=== PATIENT | female | born 2000 | race Caucasian/White ===

== ENCOUNTER 2018-01-03 01:26 | Emergency (ER) | payer BC ==
[~2018-01-03] VITALS: Ht 167.6 cm; Wt 54.7 kg
[2018-01-03 01:31] VITALS: TEMP 36.5; Ht 167.6 cm; Wt 54.7 kg
[2018-01-03] MEDS ORDERED: ALBUT/IPRATROP 3MG/0.5MG NEB 3 ML VIAL INH STA (01:46)
[2018-01-03] MEDS ORDERED: SODIUM CHLORIDE 0.9% 1000ML 1,000 ML IV STA (01:46)
[2018-01-03] MEDS ORDERED: DiphenhydrAMINE HCL 50 MG/ML VIAL IV STA (01:46)
[2018-01-03 02:14] LABS: BASO % 0.4 %; BASO ABS # 0.03 K/uL (0-0.2); EOS % 1.6 %; EOS ABS # 0.12 K/uL (0-0.5); HEMATOCRIT 42.2 % (37-47); HEMOGLOBIN 15.3 g/dL (12.0-16.0); IG# 0.02 K/uL (0.00-0.02); LYMPH % 40.1 %; LYMPH ABS # 3.01 K/uL (1.2-3.4); MEAN CORPUSCULAR HEMOGLOBIN 31.5 pg (25-34); MEAN CORPUSCULAR HGB CONC 36.3 g/dl (32-36); MONO % 9.5 %; MONO ABS # 0.71 K/uL (0.11-0.59); NEUT % 48.1 %; NEUT ABS # 3.62 K/uL (1.4-6.5); PLATELET COUNT 218 K/uL (130-400); RED CELL DISTRIBUTION WIDTH CV 11.6 % (11.5-14.5); RED CELL DISTRIBUTION WIDTH SD 36.6 fL (36.4-46.3); WHITE BLOOD COUNT 7.51 K/uL (4.8-10.8)
[2018-01-03] MEDS ORDERED: BCPILLS PO (02:21)
[2018-01-03] MEDS ORDERED: MONT1TAB3 PO (02:21)
[2018-01-03] MEDS ORDERED: TZRCR5 TOP (02:21)
[2018-01-03] MEDS ORDERED: DAPS5GEL2 TOP (02:21)
[2018-01-03 02:33] LABS: BLOOD UREA NITROGEN 11 mg/dl (7-18); CALCIUM 9.3 mg/dl (8.5-10.1); CARBON DIOXIDE 25 mmol/L (21-32); CREATININE 0.91 mg/dl (0.60-1.20); GLUCOSE 100 mg/dl (70-99); POTASSIUM 3.3 mmol/L (3.5-5.1); SODIUM 140 mmol/L (136-145)
[2018-01-03 03:07] VITALS: BP 121/65; PULSE 78; O2SAT 98
--- NOTE | 2018-01-03 03:13 | EMERGENCY ROOM VISIT NOTE ---
History Report prepared by Gary: Mariel Richards Under the Supervision of: Dr. Eduardo Colorado M.D. First contact with patient: 01:34 Chief Complaint: RESPIRATORY PROBLEMS Stated Complaint: DIFFICULTY BREATHING History of Present Illness The patient is a 17 year old female who presents to the Emergency Room with complaints of persistent difficulty breathing starting earlier today. She has a history of exercise induced asthma, but her symptoms today do not feel like her asthma. She feels like she should be getting more air. She is hearing noise on the left side of her chest with breathing in. Her SOB worsened today when she was lying down to go to bed. Her SOB worsened with crying today. Her grandfather today. She reports chest tightness and intermittent sharp pain in her left shoulder blade. She has had a cough. She has felt SOB with walking and going up stairs for the past couple of days. She denies any leg swelling or calf pain. She denies any history of anemia or blood clots. She denies any family history of blood clots. She is on control. Source of History: patient Onset: earlier today Position: other (global) Quality: other (difficulty breathing) Timing: other (persistent) Modifying Factors (Worsening): other (crying, lying down) Associated Symptoms: + cough, + chest pain, + back pain Note: Pt denies leg swelling or calf pain. Review of Systems See HPI for pertinent positives & negatives. A total of 10 systems reviewed and were otherwise negative. Past Medical & Surgical Medical Problems: (1) Exercise-induced asthma Family History No family history of blood clots. Social History Smoking Status: Never Smoker Occupation Status: [employer] student Current/Historical Medications Scheduled Control Pills ( Control Pills), 1 TAB PO DAILY Dapsone (Topical) (Aczone), 1 APPLN TOP BID Montelukast Sodium (Singulair), 10 MG PO DAILY Tazarotene (Tazorac), 1 APPLN TOP HS Allergies Coded Allergies: No Known Allergies (Unverified , 01/03/18) Physical Exam Vital Signs Date Time Temp Pulse Resp B/P (MAP) Pulse Ox O2 Delivery O2 Flow Rate FiO2 01/03/18 03:07 78 16 121/65 98 Room Air 01/03/18 01:40 97 Room Air 01/03/18 01:31 36.5 84 18 125/85 98 Room Air Physical Exam GENERAL: Patient is sad appearing, crying, and in no acute distress. HEENT: No acute trauma, normocephalic atraumatic, dehydrated appearing with some dry mucous membranes, no nasal congestion, no scleral icterus. NECK: No stridor, no adenopathy, no meningismus, trachea is midline. LUNGS: Mild prolonged expiratory time otherwise no wheeze, no rhonchi. HEART: Regular rate and rhythm. No murmurs, rubs, gallops appreciated. ABDOMEN: Soft, nontender, bowel sounds positive, no masses appreciated, no peritonitis. BACK: No midline tenderness, no CVA tenderness EXTREMITIES: Normal motion all extremities, no cyanosis, no edema. NEUROLOGIC: Alert and oriented, no acute motor or sensory deficits, no focal weakness, cranial nerves grossly intact. SKIN: No rash, no jaundice, no diaphoresis. Medical Decision & Procedures ER Provider Diagnostic Interpretation: X ray results are stated below per my interpretation: Chest: 1 view: No infiltrate, no effusion, normal cardiac border. Laboratory Results 01/03/18 02:00 Red Blood Count 4.85, Mean Corpuscular Volume 87.0, Mean Corpuscular Hemoglobin 31.5, Mean Corpuscular Hemoglobin Concent 36.3, Mean Platelet Volume 9.0, Neutrophils (%) (Auto) 48.1, Lymphocytes (%) (Auto) 40.1, Monocytes (%) (Auto) 9.5, Eosinophils (%) (Auto) 1.6, Basophils (%) (Auto) 0.4, Neutrophils # (Auto) 3.62, Lymphocytes # (Auto) 3.01, Monocytes # (Auto) 0.71, Eosinophils # (Auto) 0.12, Basophils # (Auto) 0.03 01/03/18 02:00 Test 01/03/18 02:00 01/03/18 02:43 White Blood Count 7.51 K/uL (4.8-10.8) Red Blood Count 4.85 M/uL (4.2-5.4) Hemoglobin 15.3 g/dL (12.0-16.0) Hematocrit 42.2 % (37-47) Mean Corpuscular Volume 87.0 fL (80-100) Mean Corpuscular Hemoglobin 31.5 pg (25-34) Mean Corpuscular Hemoglobin Concent 36.3 g/dl (32-36) Platelet Count 218 K/uL (130-400) Mean Platelet Volume 9.0 fL (7.4-10.4) Neutrophils (%) (Auto) 48.1 % Lymphocytes (%) (Auto) 40.1 % Monocytes (%) (Auto) 9.5 % Eosinophils (%) (Auto) 1.6 % Basophils (%) (Auto) 0.4 % Neutrophils # (Auto) 3.62 K/uL (1.4-6.5) Lymphocytes # (Auto) 3.01 K/uL (1.2-3.4) Monocytes # (Auto) 0.71 K/uL (0.11-0.59) Eosinophils # (Auto) 0.12 K/uL (0-0.5) Basophils # (Auto) 0.03 K/uL (0-0.2) RDW Standard Deviation 36.6 fL (36.4-46.3) RDW Coefficient of Variation 11.6 % (11.5-14.5) Immature Granulocyte % (Auto) 0.3 % Immature Granulocyte # (Auto) 0.02 K/uL (0.00-0.02) Anion Gap 8.0 mmol/L (3-11) Est Creatinine Clear Calc Drug Dose 85.9 ml/min Estimated GFR () 106.0 Estimated GFR (Non- 91.5 BUN/Creatinine Ratio 12.6 (10-20) Calcium Level 9.3 mg/dl (8.5-10.1) Total Creatine Kinase 89 U/L (26-192) Troponin I < 0.015 ng/ml (0-0.045) D-Dimer 200 ug/L FEU (0-500) Laboratory results as reviewed by me. Medications Administered Medications (Trade) Dose Ordered Sig/Peg Route Start Time Stop Time Status Last Admin Dose Admin Sodium Chloride 1,000 ml @ 999 mls/hr Q1H1M STAT IV 01/03/18 01:46 01/03/18 02:46 DC 01/03/18 02:02 999 MLS/HR Albuterol/ Ipratropium (Duoneb) 3 ml NOW STAT INH 01/03/18 01:46 01/03/18 01:48 DC 01/03/18 02:03 3 ML Diphenhydramine HCl (Benadryl Inj) 25 mg NOW STAT IV 01/03/18 01:46 01/03/18 01:48 DC 01/03/18 02:01 25 MG Ketorolac Tromethamine (Toradol Inj) 30 mg NOW STAT IV 01/03/18 03:14 01/03/18 03:15 DC 01/03/18 03:25 30 MG ECG Per My Interpretation Indication: SOB/dyspnea Rate (beats per minute): 64 Rhythm: normal sinus Findings: no acute ischemic change, no ectopy ED Course 0138: The patient was evaluated in room B3B. A complete history and physical exam was performed. 0146: Benadryl Inj 25 mg IV, Duoneb 3 ml INH, Sodium Chloride 1000 ml @ 999 mls/ hr IV. 0307: Reevaluated the patient. She feels about the same, but more sleepy. She is comfortable going home. Her mother is coming in the morning. I discussed symptoms requiring return. Discussed results and discharge instructions: She verbalized understanding and agreement. The patient is ready for discharge. 0314: Toradol Inj 30 mg IV. Medical Decision 17 yr old female arrives with feeling short of breath with chest tightness. Exam benign with questionable prolonged expiratory phase. Neb with minimal change. Vitals OK. Dimer negative. No clear evidence of PE, dissection. This is not ACS. No evidence pneumonia. Does not seem consistent with pericarditis. She is stable looks well. Comfortable with discharge. Reviewed symptoms requiring return to ED. Medication Reconcilliation Current Medication List: was personally reviewed by me Blood Pressure Screening Patient's blood pressure: Normal blood pressure Blood pressure disposition: Did not require urgent referral Impression Primary Impression: Shortness of breath Additional Impression: Feeling of chest tightness Scribe Attestation The scribe's documentation has been prepared under my direction and personally reviewed by me in its entirety. I confirm that the note above accurately reflects all work, treatment, procedures, and medical decision making performed by me. Departure Information Dispostion Home / Self-Care Referrals No Doctor, Assigned (PCP) Patient Instructions ED Chest Pain Pleurisy, My [facility] Additional Instructions You have been examined and treated today on an emergency basis only. This is not a substitute for, or an effort to provide, complete comprehensive medical care. It is impossible to recognize and treat all injuries or illnesses in a single emergency department visit. It is therefore important that you follow up closely with your Primary Physician. Call as soon as possible for an appointment so you can review all labs, imaging and other testing that you had. Return to Emergency Department, call 911 or seek immediate medical attention if you feel your symptoms are worsening. Your Chest Xray was unremarkable. You had blood count, renal profile, dimer, troponin which were unremarkable. An EKG was unremarkable as well. Problem Qualifiers
[2018-01-03] MEDS ORDERED: KETOROLAC TROMETHAMINE 30 MG/ML VIAL IV STA (03:14)
--- NOTE | 2018-01-03 06:57 | DIAGNOSTIC IMAGING REPORT ---
CHEST ONE VIEW PORTABLE CLINICAL HISTORY: [facility], [place] Pain pain COMPARISON STUDY: No previous studies for comparison. FINDINGS: The bones soft tissues and hemidiaphragms are normal. The cardiomediastinal silhouette is normal. The lungs are clear. The pulmonary vasculature is normal. IMPRESSION: Negative chest. The above report was generated using voice recognition software. It may contain grammatical, syntax or spelling errors. Electronically signed by: lGenroy Hays M.D. 01/03/2018 6:56 AM Dictated Date/Time: 01/03/2018 6:56 AM
== END 2018-01-03 03:31 | disposition home or self-care (01) ==
LOC: C.EDB 01:27
DX: R06.02 Shortness of breath (principal); R07.89 Other chest pain; Z79.3 Long term (current) use of hormonal contraceptives; J45.990 Exercise induced bronchospasm

== ENCOUNTER → 2018-02-07 | Outpatient (CLI) | payer BC ==
[~2018-02-07] MED LIST: BCPILLS PO; DAPS5GEL2 TOP; DICY10CA55 PO; MONT1TAB3 PO; TZRCR5 TOP
--- NOTE | 2018-02-07 09:29 | DIAGNOSTIC IMAGING REPORT ---
ABDOMEN LIMITED (US) CLINICAL HISTORY: 17 years-old Female presenting with RUQ ABD PAIN. TECHNIQUE: Real-time grayscale and limited color Doppler ultrasound imaging of the abdomen limited to the right upper quadrant was performed. COMPARISON: None. FINDINGS: Pancreas: Visualized portions of the pancreatic head and body normal. Liver: Normal echogenicity and echotexture. The liver measures 13.9 cm in maximal sagittal dimension. No sonographic evidence of hepatic mass. Main portal vein patent with normal directional flow. Biliary: No intrahepatic biliary ductal dilatation. Common bile duct measures up to 3 mm in diameter. Gallbladder: No evidence of gallstones, gallbladder wall thickening, gallbladder distention, or pericholecystic fluid or inflammatory change. Right kidney: Normal in appearance. No hydronephrosis. Ascites: None. Other: None. IMPRESSION: No cholelithiasis or biliary ductal dilatation. Electronically signed by: Colby Ramos M.D. 02/07/2018 9:28 AM Dictated Date/Time: 02/07/2018 9:27 AM
== END | disposition home or self-care (01) ==
LOC: C.ULTR 08:47
PROVIDERS: ATTEND Physician Assistant
DX: R10.11 Right upper quadrant pain (principal)

== ENCOUNTER 2018-02-15 18:08 | Emergency (ER) | payer BC ==
[~2018-02-15] VITALS: Ht 165.1 cm; Wt 55.4 kg
[~2018-02-15 18:08] MED LIST changes: -DICY10CA55 PO
[2018-02-15 18:33] VITALS: TEMP 36.7; Ht 165.1 cm; Wt 55.4 kg
[2018-02-15 19:24] LABS: BASO % 0.4 %; BASO ABS # 0.03 K/uL (0-0.2); EOS % 2.9 %; EOS ABS # 0.23 K/uL (0-0.5); HEMATOCRIT 37.6 % (37-47); HEMOGLOBIN 13.6 g/dL (12.0-16.0); IG# 0.02 K/uL (0.00-0.02); LYMPH ABS # 2.97 K/uL (1.2-3.4); MEAN CELL VOLUME 88.3 fL (80-100); MEAN CORPUSCULAR HEMOGLOBIN 31.9 pg (25-34); MEAN CORPUSCULAR HGB CONC 36.2 g/dl (32-36); MEAN PLATELET VOLUME 9.3 fL (7.4-10.4); MONO % 7.8 %; MONO ABS # 0.61 K/uL (0.11-0.59); NEUT % 50.6 %; NEUT ABS # 3.96 K/uL (1.4-6.5); PLATELET COUNT 210 K/uL (130-400); RED CELL DISTRIBUTION WIDTH CV 11.8 % (11.5-14.5); RED CELL DISTRIBUTION WIDTH SD 37.9 fL (36.4-46.3); WHITE BLOOD COUNT 7.82 K/uL (4.8-10.8)
--- NOTE | 2018-02-15 19:40 | DIAGNOSTIC IMAGING REPORT ---
ABD/PELVIS WITHOUT FOR STONE CLINICAL HISTORY: 17 years-old Female presenting with right flank pain. TECHNIQUE: Multidetector CT of the abdomen and pelvis was performed without the use of intravenous contrast. IV contrast: None. A dose lowering technique was used consistent with the principles of ALARA (as low as reasonably achievable). COMPARISON: None. CT DOSE (mGy.cm): The estimated cumulative dose is 257.81 mGy.cm. FINDINGS: Executive Coordinator topogram: Unremarkable. Lung bases: Lungs and pleural spaces clear. Normal heart size. No pericardial or pleural effusion. Liver: Normal morphology. Normal density. Biliary: No gross biliary ductal dilatation allowing for noncontrast technique. Layering gallbladder sludge or minimally radiodense gallstones may be present. Pancreas: Normal noncontrast appearance. Spleen: Normal noncontrast appearance. Adrenal glands: Normal noncontrast appearance. Kidneys and ureters: Normal noncontrast appearance. No nephrolithiasis. No hydronephrosis. Normal ureters. Bladder: Incompletely evaluated secondary to underdistention. Pelvic organs: Normal noncontrast appearance. Bowel: Normal appendix. No bowel obstruction. Peritoneal cavity: Trace free fluid in the pelvis. No free intraperitoneal gas. Lymph nodes: No gross lymphadenopathy allowing for noncontrast technique. Vasculature: Normal noncontrast appearance. Abdominal wall: Normal. Musculoskeletal: Normal. IMPRESSION: 1. No nephrolithiasis or hydronephrosis. 2. Possible gallbladder sludge or minimally radiodense gallstones suggested. 3. Free fluid in the pelvis is likely physiologic. 4. No convincing evidence of acute intra-abdominal pathology. Electronically signed by: Colby Ramos M.D. 02/15/2018 7:38 PM Dictated Date/Time: 02/15/2018 7:33 PM
[2018-02-15 19:48] LABS: ALBUMIN 3.7 gm/dl (3.4-5.0); CALCIUM 8.8 mg/dl (8.5-10.1); CREATININE 0.91 mg/dl (0.60-1.20); POTASSIUM 3.5 mmol/L (3.5-5.1)
[2018-02-15 19:51] LABS: TOTAL PROTEIN 7.4 gm/dl (6.4-8.2)
[2018-02-15] MEDS ORDERED: DICY10CA55 PO (20:53)
--- NOTE | 2018-02-15 20:56 | EMERGENCY ROOM VISIT NOTE ---
History Report prepared by Gary: Michael Juarez Under the Supervision of: Dr. Adam Baldwin D.O. First contact with patient: 18:42 Chief Complaint: ABDOMINAL PAIN Stated Complaint: R ABDOMINAL PAIN History of Present Illness The patient is a 17 year old female who presents to the Emergency Room with complaints of intermittent sharp right sided abdominal pain that began 1 month ago which she rates as 4/10. She states that the episodes of pain last between several seconds to an hour. She also complains of associated right sided back pain. She has had abnormal bowel movements with increased bowel movements last week. She states that she had diarrhea two weeks ago. She states that eating worsens this pain. She has seen a GI specialist at [facility] (Arleth Lord PA-C) who prescribed her acid medication and ordered an ultrasound with normal findings. She denies urinary symptoms, and vomiting. She is scheduled for a HIDA scan on 02/27/2018. Source of History: patient Onset: 1 month ago Position: abdomen Symptom Intensity: pain rated as 4/10 Quality: sharp Timing: intermittent Modifying Factors (Worsening): eating Associated Symptoms: + back pain, + diarrhea (2 weeks ago), No vomiting, No urinary symptoms Review of Systems See HPI for pertinent positives & negatives. A total of 10 systems reviewed and were otherwise negative. Past Medical & Surgical Medical Problems: (1) Exercise-induced asthma Family History FH: heart disease FHx: diabetes mellitus Kidney stones Social History Smoking Status: Never Smoker Smokeless Tobacco Use: No Alcohol Use: none Drug Use: none Marital Status: single Occupation Status: [employer] student Current/Historical Medications Scheduled Control Pills ( Control Pills), 1 TAB PO DAILY Dapsone (Topical) (Aczone), 1 APPLN TOP BID Montelukast Sodium (Singulair), 10 MG PO DAILY Tazarotene (Tazorac), 1 APPLN TOP HS Allergies Coded Allergies: No Known Allergies (Unverified , 02/15/18) Physical Exam Vital Signs Date Time Temp Pulse Resp B/P (MAP) Pulse Ox O2 Delivery O2 Flow Rate FiO2 02/15/18 20:08 72 98 02/15/18 20:01 109/60 02/15/18 19:38 79 18 119/60 100 Room Air 02/15/18 18:33 36.7 87 18 151/57 97 Room Air Physical Exam CONSTITUTIONAL/VITAL SIGNS: Reviewed / noted above. GENERAL: Non-toxic in appearance. INTEGUMENTARY: Warm, dry, and [place]. HEAD: Normocephalic. EYES: without scleral icterus or trauma. ENT/OROPHARYNX: clear and moist. LYMPHADENOPATHY/NECK: Is supple without lymphadenopathy or meningismus. RESPIRATORY: Lungs clear and equal. CARDIOVASCULAR: Regular rate and rhythm. GI/ABDOMEN: Soft and nontender. No organomegaly or pulsatile mass. No rebound or guarding. Normal bowel sounds. EXTREMITIES: Warm and well perfused. BACK: No CVA tenderness. NEUROLOGICAL: Intact without focal deficits. PSYCHIATRIC: normal affect. MUSCULOSKELETAL: Normally developed with good muscle tone. Medical Decision & Procedures ER Provider Diagnostic Interpretation: Radiology results as stated below per my review and radiologist interpretation: ABD/PELVIS WITHOUT FOR STONE CLINICAL HISTORY: 17 years-old Female presenting with right flank pain. TECHNIQUE: Multidetector CT of the abdomen and pelvis was performed without the use of intravenous contrast. IV contrast: None. A dose lowering technique was used consistent with the principles of ALARA (as low as reasonably achievable). COMPARISON: None. CT DOSE (mGy.cm): The estimated cumulative dose is 257.81 mGy.cm. FINDINGS: Graduate Engineer topogram: Unremarkable. Lung bases: Lungs and pleural spaces clear. Normal heart size. No pericardial or pleural effusion. Liver: Normal morphology. Normal density. Biliary: No gross biliary ductal dilatation allowing for noncontrast technique. Layering gallbladder sludge or minimally radiodense gallstones may be present. Pancreas: Normal noncontrast appearance. Spleen: Normal noncontrast appearance. Adrenal glands: Normal noncontrast appearance. Kidneys and ureters: Normal noncontrast appearance. No nephrolithiasis. No hydronephrosis. Normal ureters. Bladder: Incompletely evaluated secondary to underdistention. Pelvic organs: Normal noncontrast appearance. Bowel: Normal appendix. No bowel obstruction. Peritoneal cavity: Trace free fluid in the pelvis. No free intraperitoneal gas. Lymph nodes: No gross lymphadenopathy allowing for noncontrast technique. Vasculature: Normal noncontrast appearance. Abdominal wall: Normal. Musculoskeletal: Normal. IMPRESSION: 1. No nephrolithiasis or hydronephrosis. 2. Possible gallbladder sludge or minimally radiodense gallstones suggested. 3. Free fluid in the pelvis is likely physiologic. 4. No convincing evidence of acute intra-abdominal pathology. Electronically signed by: Colby Ramos M.D. 02/15/2018 7:38 PM Dictated Date/Time: 02/15/2018 7:33 PM Laboratory Results 02/15/18 19:10 Red Blood Count 4.26, Mean Corpuscular Volume 88.3, Mean Corpuscular Hemoglobin 31.9, Mean Corpuscular Hemoglobin Concent 36.2, Mean Platelet Volume 9.3, Neutrophils (%) (Auto) 50.6, Lymphocytes (%) (Auto) 38.0, Monocytes (%) (Auto) 7.8, Eosinophils (%) (Auto) 2.9, Basophils (%) (Auto) 0.4, Neutrophils # (Auto) 3.96, Lymphocytes # (Auto) 2.97, Monocytes # (Auto) 0.61, Eosinophils # (Auto) 0.23, Basophils # (Auto) 0.03 02/15/18 19:10 Test 02/15/18 19:10 White Blood Count 7.82 K/uL (4.8-10.8) Red Blood Count 4.26 M/uL (4.2-5.4) Hemoglobin 13.6 g/dL (12.0-16.0) Hematocrit 37.6 % (37-47) Mean Corpuscular Volume 88.3 fL (80-100) Mean Corpuscular Hemoglobin 31.9 pg (25-34) Mean Corpuscular Hemoglobin Concent 36.2 g/dl (32-36) Platelet Count 210 K/uL (130-400) Mean Platelet Volume 9.3 fL (7.4-10.4) Neutrophils (%) (Auto) 50.6 % Lymphocytes (%) (Auto) 38.0 % Monocytes (%) (Auto) 7.8 % Eosinophils (%) (Auto) 2.9 % Basophils (%) (Auto) 0.4 % Neutrophils # (Auto) 3.96 K/uL (1.4-6.5) Lymphocytes # (Auto) 2.97 K/uL (1.2-3.4) Monocytes # (Auto) 0.61 K/uL (0.11-0.59) Eosinophils # (Auto) 0.23 K/uL (0-0.5) Basophils # (Auto) 0.03 K/uL (0-0.2) RDW Standard Deviation 37.9 fL (36.4-46.3) RDW Coefficient of Variation 11.8 % (11.5-14.5) Immature Granulocyte % (Auto) 0.3 % Immature Granulocyte # (Auto) 0.02 K/uL (0.00-0.02) Urine Color YELLOW Urine Appearance CLEAR (CLEAR) Urine pH 6.0 (4.5-7.5) Urine Specific [place] 1.019 (1.000-1.030) Urine Protein NEG (NEG) Urine Glucose (UA) NEG (NEG) Urine Ketones NEG (NEG) Urine Occult Blood NEG (NEG) Urine Nitrite NEG (NEG) Urine Bilirubin NEG (NEG) Urine Urobilinogen NEG (NEG) Urine Leukocyte Esterase NEG (NEG) Urine WBC (Auto) 0 /hpf (0-5) Urine RBC (Auto) 0-4 /hpf (0-4) Urine Hyaline Casts (Auto) 0 /lpf (0-5) Urine Epithelial Cells (Auto) 0-5 /lpf (0-5) Urine Bacteria (Auto) NEG (NEG) Urine Test NEG (NEG) Anion Gap 7.0 mmol/L (3-11) Est Creatinine Clear Calc Drug Dose 87.0 ml/min Estimated GFR () 106.0 Estimated GFR (Non- 91.5 BUN/Creatinine Ratio 12.6 (10-20) Calcium Level 8.8 mg/dl (8.5-10.1) Total Bilirubin 0.4 mg/dl (0.2-1) Direct Bilirubin 0.1 mg/dl (0-0.2) Aspartate Amino Transf (AST/SGOT) 15 U/L (15-37) Alanine Aminotransferase (ALT/SGPT) 19 U/L (12-78) Alkaline Phosphatase 38 U/L (45-117) Total Protein 7.4 gm/dl (6.4-8.2) Albumin 3.7 gm/dl (3.4-5.0) Lipase 146 U/L (73-393) Laboratory results as stated above per my review. ED Course 1841: Previous medical records were reviewed. The patient was evaluated in room B3B. A complete history and physical examination was performed. 2039: I checked on the patient and she is resting comfortably. 2044: On reevaluation, the patient is resting. I discussed the results and findings with the patient. She verbalized agreement of the treatment plan. She was discharged home. Medical Decision Differential considered: pancreatitis, hepatitis, or acute cholecystitis, AAA, UTI, pyelonephritis, kidney stones, appendicitis, diverticulitis, shingles, bowel obstruction mesenteric ischemia, intussusception,hernia, ovarian torsion, ruptured ovarian cyst,ectopic , . This is a 17-year-old female who presents to the ED with a chief complaint of right-sided abdominal pain. The patient states that she has had this pain intermittently for the past month or more. She states that the pain comes and goes and it seems to be more prominent with eating. She states that she typically does not have it at night while she sleeping. The patient states that it occurs in 3 different locations, epigastric area, right upper quadrant and right lateral abdomen. The patient states the pain is sometimes sharp. It comes anywhere from a few minutes to a few seconds and goes away and last for about a total of an hour. CT scan of the abdomen pelvis reveals a possible gallbladder sludge. Relative to the ultrasound that was recently done, the ultrasound of the gallbladder was normal. CBC and complete metabolic panel were normal, lipase is negative, urine did not show infection and test was negative. The patient was told the results of the test. She was eating and is asymptomatic. She was told the results. She does have a HIDA scan scheduled and she was discharged on Bentyl. Medication Reconcilliation Current Medication List: was personally reviewed by me Blood Pressure Screening Patient's blood pressure: Elevated blood pressure Blood pressure disposition: Elevated BP felt to be situational Impression Primary Impression: Right upper quadrant abdominal pain Scribe Attestation The scribe's documentation has been prepared under my direction and personally reviewed by me in its entirety. I confirm that the note above accurately reflects all work, treatment, procedures, and medical decision making performed by me. Departure Information Dispostion Home / Self-Care Prescriptions Dicyclomine Hcl (BENTYL) 10 Mg Cap 1 CAP PO TID for 30 Days, #30 CAP 0 Refills Prov: Adam Baldwin D.O. 02/15/18 Referrals [facility] (PCP) Patient Instructions My [facility] Additional Instructions Bentyl as prescribed. Follow-up with your doctor for further care and evaluation in 1-7 days. Return to the emergency department for worsening or new symptoms or any concerns. You have been examined and treated today on an emergency basis only. This is not a substitute for, or an effort to provide, complete comprehensive medical care. It is impossible to recognize and treat all injuries or illnesses in a single emergency department visit. It is therefore important that you follow up closely with your doctor. Call as soon as possible for an appointment.
[2018-02-15 22:48] VITALS: BP 106/51; PULSE 76; O2SAT 96
== END 2018-02-15 22:49 | disposition home or self-care (01) ==
LOC: C.EDB 18:09
DX: R10.11 Right upper quadrant pain (principal); J45.909 Unspecified asthma, uncomplicated; Z83.3 Family history of diabetes mellitus; Z87.442 Personal history of urinary calculi; Z79.3 Long term (current) use of hormonal contraceptives; Z79.899 Other long term (current) drug therapy

== ENCOUNTER → 2018-02-27 | Outpatient (CLI) | payer BC ==
[~2018-02-27] MED LIST changes: +DICY10CA55 PO; +SINCALIDE INJ 1.1 MCG in SODIUM CHLORIDE 0.9% 100ML 100 ML IV SCH
--- NOTE | 2018-02-27 10:08 | DIAGNOSTIC IMAGING REPORT ---
NUCLEAR MEDICINE HEPATOBILIARY SCAN WITH EJECTION FRACTION HISTORY: Right upper quadrant abdominal pain. COMPARISON: Abdomen and pelvis CT 02/15/2018. TECHNIQUE: Immediately following the intravenous administration of 5.6 mCi Tc-99m Choletec, dynamic anterior abdominal imaging pre/post 1.1 mcg of Kinevac was performed. FINDINGS: Uniform hepatic tracer accumulation is shown. Prompt intrahepatic biliary excretion is seen. The gallbladder, common bile duct, and small bowel are all visualized by 25 minutes. This appearance represents the normal sequence of biliary excretion. The gall bladder ejection fraction following administration of Kinevac was 60% (normal >35%). IMPRESSION: 1. No evidence for cystic duct obstruction. 2. Gallbladder ejection fraction calculated to be 60 %. Electronically signed by: Jarrell Causey M.D. 02/27/2018 10:07 AM Dictated Date/Time: 02/27/2018 10:06 AM
== END | disposition home or self-care (01) ==
LOC: C.NUCL 07:50
PROVIDERS: ATTEND Physician Assistant
DX: R10.11 Right upper quadrant pain (principal)